=== PATIENT | female | born 1990 | race Caucasian/White ===

== ENCOUNTER 2019-12-20 11:51 | Emergency (ER) | payer MEDICAID ==
[~2019-12-20] VITALS: Ht 152.4 cm; Wt 61.5 kg
[2019-12-20 11:59] VITALS: BP 105/59
--- NOTE | 2019-12-20 12:18 | NUR ---
11 WKS PREG 29 YR OLD ALERT AND ORIENTED X 4 C/O SPOTTING, MCPHERSON, AND LOWER ABDOMINAL PAIN 3/ SINCE 4AM TODAY. DENIES N/V/D. DENIES PREVIOUS MEDICAL HX. MEDS: PROGESTERONE, FOLIC ACID
[2019-12-20 13:43] LABS: BASOPHILS % (AUTO) 0.3 % (0.0-2.0); EOSINOPHILS # (AUTO) 0.3 K/uL (0-0.4); EOSINOPHILS % (AUTO) 3.3 % (0.0-4.0); HEMATOCRIT 37.7 % (36-48); HEMOGLOBIN 12.5 g/dL (12.0-16.0); LYMPHOCYTES # (AUTO) 1.8 K/uL (2.5-16.5); MEAN CORPUSCULAR HEMOGLOBIN 30 pg (27-31); MEAN CORPUSCULAR HGB CONC 33 g/dL (33-37); MONOCYTES # (AUTO) 0.5 K/uL (0.8-1.0); MONOCYTES % (AUTO) 6.1 % (1.7-9.3); NEUTROPHILS # (AUTO) 5.6 K/uL (1.8-7.7); NEUTROPHILS % (AUTO) 68.3 % (42.2-75.2); PLATELET COUNT (AUTO) 269 K/uL (140-450); RED BLOOD CELL COUNT(AUTO) 4.23 MIL/uL (4.20-5.40); WHITE BLOOD COUNT (AUTO) 8.2 K/uL (4.8-10.8)
[2019-12-20 15:57] VITALS: BP 106/63
--- NOTE | 2019-12-20 15:57 | NUR ---
Patient discharged with v/s stable. Written and verbal after care instructions given and explained. Patient alert, oriented and verbalized understanding of instructions. Ambulatory with steady gait. All questions addressed prior to discharge. ID band removed. Patient advised to follow up with PMD. Rx of PLUS TABLET given. Patient educated on indication of medication including possible reaction and side effects. Opportunity to ask questions provided and answered.
== END 2019-12-20 15:57 | disposition home or self-care (01) ==
LOC: MED 11:51
DX: O20.0 Threatened abortion (principal); Z3A.11 11 weeks gestation of pregnancy
CPT/HCPCS: 36415; 84702; 85025; 86900; 86901; 99283; 99284

== ENCOUNTER 2020-05-20 15:35 | Inpatient (IN) | payer MEDICAID, SELFPAY ==
[~2020-05-20] VITALS: Ht 155 cm; Wt 70.0 kg
[2020-05-20 15:57] VITALS: BP 120/76
[2020-05-20] MEDS ORDERED: OMEG10005 PO (16:06)
[2020-05-20] MEDS ORDERED: OSC500 PO (16:06)
[2020-05-20] MEDS ORDERED: PREN-380 PO (16:06)
[2020-05-20 17:41] LABS: ALBUMIN 2.6 g/dL (3.4-5.0); ANION GAP 17.2 (8-16); CARBON DIOXIDE 21.4 mmol/L (21-32); CREATININE 0.6 mg/dL (0.6-1.3); POTASSIUM 3.6 mmol/L (3.5-5.1); TOTAL BILIRUBIN 0.1 mg/dL (0.0-1.0)
[2020-05-20 18:00] LABS: BASOPHILS # (AUTO) 0.1 K/uL (0.00-0.22); BASOPHILS % (AUTO) 1.1 % (0.0-2.0); EOSINOPHILS # (AUTO) 0.1 K/uL (0-0.4); EOSINOPHILS % (AUTO) 1.5 % (0.0-4.0); HEMATOCRIT 35.8 % (36-48); HEMOGLOBIN 11.8 g/dL (12.0-16.0); LYMPHOCYTES # (AUTO) 1.1 K/uL (2.5-16.5); LYMPHOCYTES % (AUTO) 16.8 % (20.5-51.1); MEAN CORPUSCULAR HEMOGLOBIN 31 pg (27-31); MEAN CORPUSCULAR HGB CONC 33 g/dL (33-37); MEAN CORPUSCULAR VOLUME 93.6 fL (80-94); MONOCYTES # (AUTO) 0.7 K/uL (0.8-1.0); MONOCYTES % (AUTO) 10.4 % (1.7-9.3); NEUTROPHILS # (AUTO) 4.5 K/uL (1.8-7.7); NEUTROPHILS % (AUTO) 70.2 % (42.2-75.2); PLATELET COUNT (AUTO) 146 K/uL (140-450); RED BLOOD CELL COUNT(AUTO) 3.82 MIL/uL (4.20-5.40); RED CELL DISTRIBUTION WIDTH 13.8 % (11.6-13.7); WHITE BLOOD COUNT (AUTO) 6.3 K/uL (4.8-10.8)
[2020-05-20] MEDS ORDERED: ACETAMINOPHEN EXTRA STRENGTH 500 MG TAB ONE (18:22)
[2020-05-20] MEDS: LACTATED RINGERS 1,000 ML IV SCH ×2 (18:54→20:42)
[2020-05-20] MEDS: ACETAMINOPHEN EXTRA STRENGTH 500 MG TAB PO PRN (18:54)
[2020-05-20] MEDS ORDERED: guaiFENesin/CODEINE 100/10MG 5 ML UDC ONE (20:35)
[2020-05-20] MEDS: guaiFENesin DM 200/20 MG-10 ML 10 ML UDC PO PRN (21:31)
[2020-05-20 22:30] LABS: APPEARANCE,URINE HAZY (CLEAR); BILIRUBIN,URINE NEGATIVE (NEGATIVE); BLOOD, URINE NEGATIVE (NEGATIVE); COLOR,URINE YELLOW (YELLOW); LEUKOCYTE ESTERASE ,URINE TRACE (NEGATIVE); NITRITE, URINE NEGATIVE (NEGATIVE); UGLUCOSE NEGATIVE (NEGATIVE)
[2020-05-20 23:19] LABS: RBC,URINE 0-5 /HPF (0-5); WBC,URINE 0-5 /HPF (0-5)
[2020-05-20 23:20] LABS: URINE AMORPHOUS URATE 1+ /HPF (None Seen)
[2020-05-21] MEDS: ACETAMINOPHEN EXTRA STRENGTH 500 MG TAB PO PRN ×2 (01:35→08:13)
[2020-05-21] MEDS: LACTATED RINGERS 1,000 ML IV SCH ×3 (05:20→19:30)
[2020-05-21] MEDS: guaiFENesin DM 200/20 MG-10 ML 10 ML UDC PO PRN ×2 (08:12→18:15)
--- NOTE | 2020-05-21 09:41 | NUR ---
PATIENT HAS BEEN SCREENED AND CATEGORIZED LOW NUTRITION RISK. PATIENT WILL BE SEEN WITHIN 7 DAYS OF ADMISSION. 05/28/[address]
[2020-05-21] MEDS: MULTIVIT/MIN/CA/FE/FA 1 TAB PO SCH (14:23)
[2020-05-21] MEDS: AZITHROMYCIN 250 MG TAB PO SCH (14:24)
[2020-05-21] MEDS ORDERED: LOPERAMIDE 2 MG CAP PO SCH (22:15)
[2020-05-22] MEDS ORDERED: LOPERAMIDE 2 MG CAP PO SCH (00:15)
[2020-05-22] MEDS: LACTATED RINGERS 1,000 ML IV SCH ×3 (03:04→17:50)
[2020-05-22] MEDS: ACETAMINOPHEN EXTRA STRENGTH 500 MG TAB PO PRN (07:05)
[2020-05-22] MEDS: MULTIVIT/MIN/CA/FE/FA 1 TAB PO SCH (08:27)
[2020-05-22] MEDS: AZITHROMYCIN 250 MG TAB PO SCH (12:25)
[2020-05-22] MEDS ORDERED: DEXAMETHASONE 10 MG/ML VIAL ONE (22:46)
[2020-05-22] MEDS ORDERED: AZITHROMYCIN 250 MG TAB PO ONE (22:55)
[2020-05-22] MEDS ORDERED: cefTRIAXone 1,000 MG VIAL ONE (23:30)
[2020-05-23] MEDS: ENOXAPARIN 80 MG/0.8 ML SYR SUBQ SCH ×2 (01:16→13:15)
[2020-05-23] MEDS: MULTIVIT/MIN/CA/FE/FA 1 TAB PO SCH (08:36)
[2020-05-23] MEDS: AZITHROMYCIN 250 MG TAB PO SCH (08:37)
[2020-05-23] MEDS ORDERED: LOVENOX 1MG/KG Q12H SUBQ SCH ×2 (09:00)
[2020-05-23] MEDS: DEXAMETHASONE 4 MG/ML VIAL IVP SCH (13:02)
[2020-05-23] MEDS: guaiFENesin DM 200/20 MG-10 ML 10 ML UDC PO PRN (17:01)
[2020-05-24] MEDS ORDERED: cefTRIAXone 1,000 MG VIAL ONE (00:28)
[2020-05-24] MEDS: DEXAMETHASONE 4 MG/ML VIAL IVP SCH ×2 (00:30→13:06)
[2020-05-24] MEDS: ENOXAPARIN 80 MG/0.8 ML SYR SUBQ SCH (00:30)
[2020-05-24] MEDS: LACTATED RINGERS 1,000 ML IV SCH (01:15)
[2020-05-24] MEDS: guaiFENesin DM 200/20 MG-10 ML 10 ML UDC PO PRN (07:08)
[2020-05-24] MEDS: MULTIVIT/MIN/CA/FE/FA 1 TAB PO SCH (08:22)
[2020-05-24] MEDS: AZITHROMYCIN 250 MG TAB PO SCH (08:22)
== END 2020-05-24 14:35 | disposition home or self-care (01) | DRG 566 ==
LOC: EEVIPCON 15:35 → MFCC 15:35 → OBSVTOIN 05-21 10:11
PROVIDERS: ADMIT Obstetrics & Gynecology; ATTEND Obstetrics & Gynecology
DX: O98.513 Other viral diseases complicating pregnancy, third trimester (principal); U07.1 COVID-19; J12.89 Other viral pneumonia; O99.513 Diseases of the respiratory system complicating pregnancy, third trimester; D64.9 Anemia, unspecified; O99.013 Anemia complicating pregnancy, third trimester; Z3A.32 32 weeks gestation of pregnancy
CPT/HCPCS: G0378 ×19; 36415; 71045; 76805; 80053; 81001; 85025; 86886; 86900; 86901; J0696; J1100; J1650; J7060; J7120; Q0092; U0003-CS

== ENCOUNTER 2020-05-27 03:30 | Emergency (ER) | payer MEDICAID, SELFPAY ==
[~2020-05-27] VITALS: Ht 165.1 cm; Wt 65.8 kg
[~2020-05-27 03:30] MED LIST: OMEG10005 PO; OSC500 PO; PREN-380 PO
--- NOTE | 2020-05-27 03:46 | NUR ---
SAL ASSESING PT IN TENT
--- NOTE | 2020-05-27 03:49 | NUR ---
PT ASSESSED, TREATED, AND D/C BY ERMD. NO NURSING INTERVENTIONS NEEDED.
--- NOTE | 2020-05-27 03:49 | NUR ---
Patient discharged with v/s stable. Written and verbal after care instructions given and explained. Patient alert, oriented and verbalized understanding of instructions. Ambulatory with steady gait. All questions addressed prior to discharge. ID band removed. Patient advised to follow up with PMD. Rx of GUAIFENESIN DM given. Patient educated on indication of medication including possible reaction and side effects. Opportunity to ask questions provided and answered.
[2020-05-27 03:52] VITALS: BP 110/63
[2020-05-27 03:59] VITALS: BP 110/63
== END 2020-05-27 03:49 | disposition home or self-care (01) ==
LOC: MED 03:30
DX: O98.513 Other viral diseases complicating pregnancy, third trimester (principal); U07.1 COVID-19; J12.89 Other viral pneumonia; Z3A.33 33 weeks gestation of pregnancy; Z79.899 Other long term (current) drug therapy
CPT/HCPCS: 99282

== ENCOUNTER 2020-06-17 11:38 | Outpatient (CLI) | payer MEDICAID, SELFPAY | END 2020-06-17 17:44 | disposition home or self-care (01) | LOC: MLB 11:38 | PROVIDERS: ATTEND Obstetrics & Gynecology | DX: Z11.59 Encounter for screening for other viral diseases (principal) | CPT/HCPCS: U0003-CS ==

== ENCOUNTER 2020-07-02 22:09 | Inpatient (IN) | payer MEDICAID, SELFPAY ==
[~2020-07-02] VITALS: Ht 154.9 cm; Wt 59.9 kg
[2020-07-02] MEDS ORDERED: TERBUTALINE 1 MG/ML VIAL SUBQ PRN (23:00)
[2020-07-02] MEDS ORDERED: diphenhydrAMINE 50 MG/ML VIAL IVP PRN (23:00)
[2020-07-02] MEDS ORDERED: ONDANSETRON 4 MG/2 ML VIAL IVP PRN (23:00)
[2020-07-02] MEDS ORDERED: MORPHINE SULFATE 5 MG/ML VIAL IVP PRN (23:00)
[2020-07-02] MEDS ORDERED: OXYTOCIN 10 UNITS/ML VIAL IM SCH (23:00)
[2020-07-02] MEDS ORDERED: CARBOPROST 250 MCG/ML AMP IM PRN (23:00)
[2020-07-02] MEDS ORDERED: METHYLERGONOVINE 0.2 MG/ML AMP IM PRN (23:00)
[2020-07-02 23:39] LABS: APPEARANCE,URINE CLEAR (CLEAR); BILIRUBIN,URINE NEGATIVE (NEGATIVE); BLOOD, URINE NEGATIVE (NEGATIVE); COLOR,URINE YELLOW (YELLOW); LEUKOCYTE ESTERASE ,URINE NEGATIVE (NEGATIVE); NITRITE, URINE NEGATIVE (NEGATIVE); UGLUCOSE NEGATIVE (NEGATIVE)
[2020-07-02 23:40] LABS: BASOPHILS # (AUTO) 0.1 K/uL (0.00-0.22); BASOPHILS % (AUTO) 0.8 % (0.0-2.0); EOSINOPHILS # (AUTO) 0.3 K/uL (0-0.4); EOSINOPHILS % (AUTO) 3.9 % (0.0-4.0); HEMATOCRIT 35.8 % (36-48); HEMOGLOBIN 11.9 g/dL (12.0-16.0); LYMPHOCYTES # (AUTO) 2.6 K/uL (2.5-16.5); LYMPHOCYTES % (AUTO) 36.2 % (20.5-51.1); MEAN CORPUSCULAR HEMOGLOBIN 31 pg (27-31); MEAN CORPUSCULAR HGB CONC 33 g/dL (33-37); MEAN CORPUSCULAR VOLUME 94.4 fL (80-94); MONOCYTES # (AUTO) 0.6 K/uL (0.8-1.0); MONOCYTES % (AUTO) 8.6 % (1.7-9.3); NEUTROPHILS # (AUTO) 3.6 K/uL (1.8-7.7); NEUTROPHILS % (AUTO) 50.5 % (42.2-75.2); PLATELET COUNT (AUTO) 151 K/uL (140-450); RED BLOOD CELL COUNT(AUTO) 3.79 MIL/uL (4.20-5.40); RED CELL DISTRIBUTION WIDTH 13.7 % (11.6-13.7); WHITE BLOOD COUNT (AUTO) 7.2 K/uL (4.8-10.8)
[2020-07-02 23:59] LABS: ALBUMIN 2.7 g/dL (3.4-5.0); ANION GAP 15.9 (8-16); CARBON DIOXIDE 21.1 mmol/L (21-32); CREATININE 0.7 mg/dL (0.6-1.3); TOTAL BILIRUBIN 0.2 mg/dL (0.0-1.0)
[2020-07-03] MEDS ORDERED: MISOPROSTOL 25 MCG TAB VG SCH
[2020-07-03] MEDS: LACTATED RINGERS 1,000 ML IV SCH ×3 (01:15→09:05)
[2020-07-03] MEDS ORDERED: ROPIVACAINE 0.2%/NS PREMIX 200 ML EPI SCH (08:10)
--- NOTE | 2020-07-03 09:02 | NUR ---
PATIENT HAS BEEN SCREENED AND CATEGORIZED LOW NUTRITION RISK. PATIENT WILL BE SEEN WITHIN 7 DAYS OF ADMISSION. 07/09/[address]
[2020-07-03] MEDS ORDERED: OXYTOCIN 20 UNITS/LR PREMIX 1,000 ML IV ONE (09:11)
[2020-07-03] MEDS ORDERED: OXYTOCIN 20 UNITS in LACTATED RINGERS 1,000 ML IV SCH (09:20)
[2020-07-03] MEDS ORDERED: IBUPROFEN 600 MG TAB PO PRN ×3 (16:35→18:40)
[2020-07-03] MEDS ORDERED: bisacodyL 5 MG TABEC PO PRN (18:40)
[2020-07-03] MEDS ORDERED: BENZOCAINE/MENTHOL 20%-0.5% 60 GM CAN TP PRN (18:40)
[2020-07-03] MEDS ORDERED: SIMETHICONE 80 MG TAB.CHEW PO PRN (18:40)
[2020-07-03] MEDS ORDERED: OXYTOCIN 10 UNITS/ML VIAL IM PRN (18:40)
[2020-07-03] MEDS ORDERED: MEASLES, MUMPS, AND RUBELLA 1 VIAL SQVAC PRN (18:40)
[2020-07-03] MEDS ORDERED: METHYLERGONOVINE 0.2 MG TAB PO PRN (18:40)
[2020-07-03] MEDS ORDERED: DOCUSATE SODIUM 100 MG GELCAP PO PRN (18:40)
[2020-07-04] MEDS: IBUPROFEN 800 MG TAB PO PRN ×2 (03:35→17:52)
[2020-07-04 07:53] LABS: HEMATOCRIT 32.9 % (36-48); HEMOGLOBIN 10.9 g/dL (12.0-16.0)
[2020-07-05] MEDS: IBUPROFEN 800 MG TAB PO PRN (03:05)
== END 2020-07-05 11:15 | disposition home or self-care (01) | DRG 560 ==
LOC: MLD 22:09 → EEVIPCON 22:09 → MFCC 07-03 17:03
PROVIDERS: ADMIT Obstetrics & Gynecology; ATTEND Obstetrics & Gynecology
PROC: 10E0XZZ Delivery of Products of Conception, External Approach (ICD-10-PCS; principal; 2020-07-03)
PROC: 0HQ9XZZ Repair Perineum Skin, External Approach (ICD-10-PCS; 2020-07-03)
PROC: 00HU33Z Insertion of Infusion Device into Spinal Canal, Percutaneous Approach (ICD-10-PCS; 2020-07-03)
PROC: 3E0R3BZ Introduction of Anesthetic Agent into Spinal Canal, Percutaneous Approach (ICD-10-PCS; 2020-07-03)
DX: O69.81X0 Labor and delivery complicated by cord around neck, without compression, not applicable or unspecified (principal); O99.02 Anemia complicating childbirth; D62 Acute posthemorrhagic anemia; O70.0 First degree perineal laceration during delivery; Z3A.39 39 weeks gestation of pregnancy; Z37.0 Single live birth
CPT/HCPCS: 36415; 51702; 59200; 76805; 80053; 81003; 85018; 85025; 86592; 86886; 86900; 86901; 90707; 90715; J2590; J2795; J7120; Q0092

== ENCOUNTER 2020-10-05 13:34 | Emergency (ER) | payer MEDICAID, SELFPAY ==
[~2020-10-05] VITALS: Ht 160 cm; Wt 62.8 kg
[2020-10-05 13:40] VITALS: BP 121/63
--- NOTE | 2020-10-05 13:44 | NUR ---
C/O SORE THROAT, BODY ACHE, HEADACHE 4/10 X 4 DAYS. GAVE 07/03/20. PT HAD COVID TESTED POSITIVE 05/21/20 & TESTED 06/28/20 : NEGATIVE RESULT. MED HX: DENIES
--- NOTE | 2020-10-05 14:25 | NUR ---
STREP THROAT & COVID SWAB DONE & SENT TO LAB.
[2020-10-05 14:27] VITALS: BP 121/63
--- NOTE | 2020-10-05 14:27 | NUR ---
Patient discharged with v/s stable. Written and verbal after care instructions given and explained. Patient alert, oriented and verbalized understanding of instructions. Ambulatory with steady gait. All questions addressed prior to discharge. ID band removed. Patient advised to follow up with PMD. Rx of AMOXICILLIN, IBUPROFEN & ACETAMOINOPHEN given. Patient educated on indication of medication including possible reaction and side effects. Opportunity to ask questions provided and answered.
== END 2020-10-05 14:27 | disposition home or self-care (01) ==
LOC: MED 13:34
DX: J02.9 Acute pharyngitis, unspecified (principal); Z79.899 Other long term (current) drug therapy
CPT/HCPCS: 87081; 99283; U0003